=== PATIENT | female | born 1995 | race Caucasian/White ===

== ENCOUNTER 2020-12-12 19:14 | Emergency (ER) | payer OTHER ==
[2020-12-12 20:16] LABS: HEMOGLOBIN 10.8 gm/dl (12.3-15.3); RED BLOOD COUNT 3.52 M/UL (4.00-5.10); WHITE BLOOD COUNT 11.1 K/UL (4.5-11.0)
[2020-12-12 20:32] LABS: BUN/CREATININE RATIO 20 (0-10)
[2020-12-12] MEDS ORDERED: AUGMENTIN 875-1 EACH PO (21:58)
== END 2020-12-12 23:08 | disposition home or self-care (01) ==
LOC: ER1 19:14
PROVIDERS: Emergency Medicine
DX: N10 Acute pyelonephritis (principal); R10.11 Right upper quadrant pain; Z87.440 Personal history of urinary (tract) infections; Z88.2 Allergy status to sulfonamides; Z88.8 Allergy status to other drugs, medicaments and biological substances; Z16.35 Resistance to multiple antimicrobial drugs
CPT/HCPCS: 71045; 80053; 81001; 83605; 83690; 83735; 84100; 85025; 87040; 87086; 93005; 96365; 96375; 99284; J1885; J2405; J2543

== ENCOUNTER → 2021-06-21 | Outpatient (CLI) | payer OTHER ==
[~2021-06-21] MED LIST: AUGMENTIN 875-1 EACH PO
== END ==
LOC: KOH-I 09:32
DX: R10.84 Generalized abdominal pain (principal); K59.00 Constipation, unspecified
CPT/HCPCS: 74018

== ENCOUNTER → 2021-06-27 | Outpatient (CLI) | payer OTHER | LOC: CT 09:04 | DX: R10.9 Unspecified abdominal pain (principal) | CPT/HCPCS: Q9967 ==